=== PATIENT | female | born 1940 | race Caucasian/White ===

== ENCOUNTER 2021-12-18 13:10 | Outpatient (CLI) | payer MEDICARE, SELFPAY ==
--- NOTE | 2021-12-18 13:18 | MM_ITS ---
WS: [id number] BILATERAL 3D TOMOSYNTHESIS DIGITAL SCREENING MAMMOGRAPHY WITH CAD CLINICAL INFORMATION: SCREENING HISTORY: Screening mammogram. No current complaints. COMPARISON: TECHNIQUE: Bilateral CC and MLO views. FINDINGS: The breasts are composed of heterogeneous fibroglandular density tissue, which can limit the detectio n of small underlying mass lesions. Punctate and lucent centered calcifications. Vascular calcificati on. Biopsy marker LEFT breast. No suspicious mass, asymmetry, calcifications, or architectural distor tion. No evidence of malignancy. MM/[id number] IMPRESSION: BI-RADS: 2-Benign FOLLOW UP: 1 Year Follow-up Recommend return to annual screening mammography.
== END 2021-12-18 13:11 | disposition home or self-care (01) ==
LOC: RAD 13:12
PROVIDERS: PCP Family Medicine; Visit Provider Nurse Practitioner
DX: Z12.31 Encounter for screening mammogram for malignant neoplasm of breast (principal)
CPT/HCPCS: 77063; 77067

== ENCOUNTER 2022-02-07 15:10 | Outpatient (CLI) | payer MEDICARE, SELFPAY ==
--- NOTE | 2022-02-07 15:15 | XR_ITS ---
WS: [id number] DEXA (DUAL ENERGY X-RAY ABSORPTIOMETRY) Bone mineral density was performed using a Cycle machine. HISTORY: ANNUAL ADULT WELLNESS EXAM COMPARISON: 12/30/2017 Lumbar spine BMD (L1-L4): 1.133 g/cm2 T score: -0.4 Z score: 1.6 Total hip BMD: Left: 0.788 g/cm2. T score: -1.7 Z score: 0.5 Right: 0.747 g/cm2. T score: -2.1 Z score: 0.1 10 year probability of a major osteoporotic fracture is 16.8%. Compared to the prior study from 12/30/2017. Lumbar spine bone mineral density has decreased by 4.3%. Bilateral hips bone mineral density has decrease by 6.5%. XR/XR DEXA axial skeleton* [id number] IMPRESSION: OSTEOPENIA based upon the WHO classification for females. Significant decrease in bone mineral density within both the lumbar spine and h ips since 2018.
== END 2022-02-07 15:11 | disposition home or self-care (01) ==
LOC: RAD 15:11
PROVIDERS: PCP Family Medicine; Visit Provider Nurse Practitioner
DX: Z00.00 Encounter for general adult medical examination without abnormal findings (principal); M85.88 Other specified disorders of bone density and structure, other site
CPT/HCPCS: 77080

== ENCOUNTER 2022-12-27 11:49 | Outpatient (CLI) | payer OTHER, SELFPAY ==
--- NOTE | 2022-12-27 11:57 | MM_ITS ---
WS: [id number] BILATERAL SCREENING DIGITAL TOMOSYNTHESIS MAMMOGRAM WITH CAD HISTORY: SCREENING COMPARISON: 12/18/2021, 11/26/2013 Bilateral CC and MLO views with tomosynthesis and synthetic mammography submitted. Computer aided det ection analyzed. Breast composition: There are scattered areas of fibroglandular density. No suspicious masses, microc alcifications or architectural distortion. Vascular and small punctate calcifications. Biopsy clip mi ddle LEFT breast. MM/[id number] IMPRESSION: BI-RADS: 2-Benign FOLLOW UP: 1 Year Follow-up
== END 2022-12-27 11:50 | disposition home or self-care (01) ==
LOC: RAD 11:54
PROVIDERS: PCP Family Medicine; Visit Provider Family Medicine
DX: Z12.31 Encounter for screening mammogram for malignant neoplasm of breast (principal)
CPT/HCPCS: 77063; 77067

== ENCOUNTER 2023-10-11 10:40 | Outpatient (CLI) | payer OTHER, SELFPAY ==
--- NOTE | 2023-10-11 10:47 | USCV_ITS ---
Ramona Josue Age: 82 Gender: F : 1940 Exam Date: 10/11/2023 10:58 Ordering Phys: Em Mcdonald NP Technologist: WM Exam Location: [facility] – [place] Indication: LEFT EYE VISION DISTURBANCE Risk Factors: Previous Vascular Surgery: Right Brachial BP: / Left Brachial BP: / Right Left Velocity (cm/s) Spectral Plaque Velocity (cm/s) Spectral Plaque Syst/Diast Broadening Syst/Diast Broadening 69.70/ 15.00 Prox CCA 52.30 / 12.10 69.20/ 18.50 Mid CCA 63.10 / 15.90 53.70/ 14.40 Distal CCA 51.00 / 11.90 46.00/ 10.90 Prox ICA 31.00 / 10.10 49.20/ 17.60 Mid ICA 51.40 / 15.40 53.20/ 19.00 Distal ICA 71.50 / 18.40 65.80 ECA 75.50 1.00 ICA/CCA 1.40 Antegrade Vertebral Antegrade 30.40/ 7.20 cm/s 41.40/ 9.60 cm/s Tri Subclavian Tri 89.00 73.40 FINDINGS Comparison: none available. No significant elevation of systolic or diastolic velocities. Waveforms are normal. Mild carotid atherosclerosis. Antegrade vertebral arteries. CONCLUSIONS Bilateral ICA stenosis less than 50%. Mild carotid atherosclerosis. Dr. Mariama Coleman DO (Electronically Signed) Final Date: 11 October 2023 12:28 S
== END 2023-10-11 10:41 | disposition home or self-care (01) ==
LOC: RAD 10:41
PROVIDERS: PCP Family Medicine; Visit Provider Nurse Practitioner Family
DX: H34.232 Retinal artery branch occlusion, left eye (principal); I65.23 Occlusion and stenosis of bilateral carotid arteries
CPT/HCPCS: 93880

== ENCOUNTER 2023-11-06 09:43 | Outpatient (CLI) | payer OTHER, SELFPAY ==
--- NOTE | 2023-11-06 10:25 | USCV_ITS ---
Ramona Josue Age: 83 Gender: F : 1940 Exam Date: 11/06/2023 10:33 Ordering Phys: Sahara De La O Technologist: Exam Location: [facility] – [place] Indication: chest pain BP: 112 / 70 HR: 72 Rhythm: Sinus Technical Quality: Adequate MEASUREMENTS (Male / Female) Normal Values 2D ECHO LV Diastolic Diameter PLAX 4.3 cm 4.2 - 5.9 / 3.9 - 5.3 cm IVS Diastolic Thickness 1.1 cm 0.6 - 1.0 / 0.6 - 0.9 cm IVS Systolic Thickness 1.6 cm LVPW Diastolic Thickness 1.2 cm 0.6 - 1.0 / 0.6 - 0.9 cm LVPW Systolic Thickness 1.5 cm LVOT Diameter 2.1 cm LV Ejection Fraction 2D Teich 65.6 % LV Ejection Fraction MOD 2C 77.9 % LV Ejection Fraction 2C AL 79.6 % LA Diameter 3.3 cm RA Systolic Volume 4C AL 21.0 ml RA Systolic Volume 4C MOD 21.1 ml Aorta at Sinotubular Diameter 3.3 cm IVC Diameter 1.4 cm M-MODE LA Ao Ratio MM 1.2 AV Cusp Separation MM 2.2 cm DOPPLER AV Peak Velocity 111.7 cm/s AV Area Cont Eq vti 3.9 cm squared AV Area Cont Eq pk 2.9 cm squared MV Peak Velocity 99.0 cm/s MV Area PHT 5.0 cm squared Mitral E to A Ratio 0.7 TV Peak Velocity 217.5 cm/s TR Peak Velocity 233.0 cm/s TR Peak Gradient 21.7 mmHg TV Peak E Velocity 72.0 cm/s Right Atrial Pressure 3.0 mmHg Pulmonary Artery Systolic Pressu 24.7 mmHg PV Peak Velocity 75.0 cm/s FINDINGS Left Ventricle Normal left ventricular size, systolic function and wall thickness, with no regional wall motion abnormalities. Grade I/IV diastolic dysfunction (abnormal relaxation filling pattern), normal to mildly elevated filling pressures. Left ventricular ejection fraction is estimated at 60 %. Right Ventricle Normal right ventricular size and systolic function. Normal right ventricular systolic pressure. Right Atrium The right atrium is normal in size. Left Atrium The left atrium is normal in size. Mitral Valve Structurally normal mitral valve without significant stenosis or prolapse. There is no mitral regurgitation. Aortic Valve Structurally normal aortic valve without significant sclerosis or stenosis. There is no aortic regurgitation. Tricuspid Valve Structurally normal tricuspid valve without significant stenosis or regurgitation. Pulmonary artery systolic pressure is normal. Pulmonic Valve Pulmonic valve not well visualized. Pericardium Normal pericardium without effusion. Aorta Normal ascending aorta dimension. IVC The inferior vena cava appears normal. CONCLUSIONS Normal left ventricular size, systolic function and wall thickness, with no regional wall motion abnormalities. Grade I/IV diastolic dysfunction (abnormal relaxation filling pattern), normal to mildly elevated filling pressures. Left ventricular ejection fraction is estimated at 60 %. There are no prior echocardiogram studies to compare. Dr. Liang Alanis MD (Electronically Signed) Final Date: 06 November 2023 16:11 S
== END 2023-11-06 09:44 | disposition home or self-care (01) ==
LOC: RAD 09:43
PROVIDERS: PCP Family Medicine; Visit Provider Nurse Practitioner Family
DX: H34.232 Retinal artery branch occlusion, left eye (principal)
CPT/HCPCS: 93306